=== PATIENT | male | born 1950 | race Caucasian/White ===

== ENCOUNTER 2016-04-29 13:11 | Inpatient (IN) | payer BC ==
[~2016-04-29] VITALS: Ht 182.9 cm; Wt 82.5 kg
[2016-04-29 14:10] VITALS: BP 115/72; PULSE 96; TEMP 97.5
[2016-04-29] MEDS ORDERED: AMOXICILLIN 8751 TAB PO (14:14)
[2016-04-29] MEDS ORDERED: ATIVAN 1MG T1 MG/TAB PO (14:15)
[2016-04-29] MEDS ORDERED: RT SPIRIVA18 MCG IH (14:15)
[2016-04-29] MEDS ORDERED: RT ALBUTER2.5 MG/0.5 IH (14:15)
[2016-04-29 15:01] VITALS: BP 109/69; PULSE 94; PULSE 98; TEMP 97.8
[2016-04-29 15:24] VITALS: BP 109/69; PULSE 98
[2016-04-29 17:42] LABS: BASO # 0.1 (0.0-0.2); BASO % 0.6 % (0.0-2.0); EOS # 0.4 (0.0-0.7); EOS % 4.3 % (0-4.0); GRAN # 5.9 (1.4-6.5); GRAN % 70.3 % (42.2-75.2); HEMATOCRIT 49.4 % (42.0-52.0); HEMOGLOBIN 17.1 g/dl (13.5-18.0); LYMPH # 1.1 (1.2-3.4); LYMPH % 12.9 % (20.0-51.0); MEAN CELL VOLUME 89 fl (80.0-100.0); MEAN CORPUSCULAR HEMOGLOBIN 31 pg (27.0-31.0); MEAN CORPUSCULAR HGB CONC 35 g/dl (33.0-37.0); MEAN PLATELET VOLUME 9.4 fl (7.4-10.4); MONO % 11.4 % (1.7-9.3); PLATELET COUNT 178 K/mm3 (130-400); RED BLOOD COUNT 5.53 M/mm3 (4.20-5.60); REDCELL DISTRIBUTION WIDTH-CV 13.4 % (11.5-14.5); WHITE BLOOD COUNT 8.3 K/mm3 (4.8-10.8)
[2016-04-29 17:50] LABS: INR 1.1 (0.8-3.0); PROTHROMBIN TIME 12.4 SECONDS (9.7-12.8)
[2016-04-29 17:52] LABS: PARTIAL THROMBOPLASTIN TIME 26.9 SECONDS (26.0-37.0)
[2016-04-29 17:57] LABS: ADJUSTED CALCIUM 9.2 mg/dL (8.4-10.2); ALBUMIN 3.1 gm/dL (3.5-5.0); BILIRUBIN,TOTAL 1.1 mg/dL (0.0-1.0); CALCIUM 8.5 mg/dL (8.4-10.2); CREATININE, serum 0.79 mg/dL (0.66-1.25); POTASSIUM 4.5 mmol/L (3.4-5.0); TOTAL PROTEIN 6.5 gm/dL (6.4-8.2)
[2016-04-29 18:10] LABS: TROPONIN-I 0.162 ng/mL (0.000-0.034)
[2016-04-29 18:54] LABS: INFLUENZA B NEGATIVE
[2016-04-29 19:10] VITALS: BP 147/94; PULSE 115; TEMP 98.2
[2016-04-29 22:06] LABS: PH 6 (5-8); SQUAMOUS EPITHELIAL 0-2 /hpf; URINE APPEARANCE Clear; URINE BACTERIA None Seen /hpf; URINE BILIRUBIN Negative (NEGATIVE); URINE BLOOD 2+ (NEGATIVE); URINE COLOR Yellow; URINE GLUCOSE Negative (NEGATIVE); URINE KETONE Trace (NEGATIVE); URINE RBC 20-50 /hpf; URINE UROBILINOGEN Negative (NEGATIVE)
[2016-04-30] VITALS (13 sets, daily range): BP systolic 92–119; BP diastolic 58–77; PULSE 97–110; TEMP 97.4–98.7
[2016-04-30 22:34] LABS: HOMOCYSTEINE 4.7 umol/L (5.5-16.2)
[2016-05-01 04:11] VITALS: BP 104/63; PULSE 97; TEMP 97.6
[2016-05-01 08:33] VITALS: BP 90/52; PULSE 104; TEMP 97.3
[2016-05-01 09:13] LABS: FACTOR V LEIDEN MUTATION B Negative (Negative); PT G20210A MUTATION B Negative (Negative)
[2016-05-01 10:15] LABS: CREATININE, serum 0.96 mg/dL (0.66-1.25)
[2016-05-01 11:02] LABS: BASO % 0.6 % (0.0-2.0); EOS # 0.2 (0.0-0.7); EOS % 3.1 % (0-4.0); GRAN # 4.8 (1.4-6.5); GRAN % 67.7 % (42.2-75.2); HEMATOCRIT 40.5 % (42.0-52.0); LYMPH # 1.1 (1.2-3.4); LYMPH % 15.8 % (20.0-51.0); MEAN CELL VOLUME 93 fl (80.0-100.0); MEAN CORPUSCULAR HEMOGLOBIN 32 pg (27.0-31.0); MEAN CORPUSCULAR HGB CONC 35 g/dl (33.0-37.0); MONO # 0.9 (0.1-0.6); MONO % 12.2 % (1.7-9.3); PLATELET COUNT 193 K/mm3 (130-400); RED BLOOD COUNT 4.38 M/mm3 (4.20-5.60); REDCELL DISTRIBUTION WIDTH-CV 13.8 % (11.5-14.5)
[2016-05-01 11:03] LABS: HEMOGLOBIN 14.1 g/dl (13.5-18.0)
[2016-05-01 11:19] VITALS: BP 100/60; PULSE 101; TEMP 97.9
[2016-05-01 15:36] VITALS: BP 101/57; PULSE 79; TEMP 98.1
[2016-05-01 19:10] VITALS: BP 110/65; PULSE 92; TEMP 97
[2016-05-01 23:24] VITALS: BP 103/60; PULSE 90; TEMP 98.2
[2016-05-02 04:38] VITALS: BP 114/67; PULSE 102; TEMP 97.8
[2016-05-02 08:02] LABS: BASO % 0.5 % (0.0-2.0); EOS # 0.3 (0.0-0.7); EOS % 3.8 % (0-4.0); GRAN # 4.3 (1.4-6.5); GRAN % 64.6 % (42.2-75.2); HEMATOCRIT 39.7 % (42.0-52.0); HEMOGLOBIN 13.3 g/dl (13.5-18.0); LYMPH # 1.2 (1.2-3.4); MEAN CELL VOLUME 93 fl (80.0-100.0); MEAN CORPUSCULAR HEMOGLOBIN 31 pg (27.0-31.0); MEAN CORPUSCULAR HGB CONC 34 g/dl (33.0-37.0); MEAN PLATELET VOLUME 9.1 fl (7.4-10.4); MONO # 0.8 (0.1-0.6); MONO % 12.6 % (1.7-9.3); PLATELET COUNT 219 K/mm3 (130-400); RED BLOOD COUNT 4.27 M/mm3 (4.20-5.60); REDCELL DISTRIBUTION WIDTH-CV 13.9 % (11.5-14.5); WHITE BLOOD COUNT 6.6 K/mm3 (4.8-10.8)
[2016-05-02 08:20] LABS: CALCIUM 8.1 mg/dL (8.4-10.2); CREATININE, serum 1.16 mg/dL (0.66-1.25); POTASSIUM 3.6 mmol/L (3.4-5.0)
[2016-05-02 08:30] LABS: PROTEIN C ACTIVITY 75 % (70-150); PROTEIN S ACTIVITY 121 % (65-160)
[2016-05-02 08:44] VITALS: BP 109/66; PULSE 75; TEMP 97.8
[2016-05-02] MEDS ORDERED: XARELTO STARTER20 MG PO (12:37)
[2016-05-02] MEDS ORDERED: DOXYCYCLINE 10100 MG PO (12:38)
[2016-05-02 12:52] VITALS: BP 111/69; PULSE 80; TEMP 98.1
[2016-05-02 14:49] LABS: LUPUS ANTICOAGULANT PTT 31 sec (26 - 36)
[2016-05-02 14:56] LABS: LUPUS ANTICOAGULANT INR 1.3 (()); LUPUS ANTICOAGULANT PT 14.6 sec (())
[2016-05-02 20:55] VITALS: BP 126/78; PULSE 93; TEMP 97.4
[2016-05-02 22:55] VITALS: BP 128/77; PULSE 86; TEMP 97.5
[2016-05-03 04:36] VITALS: BP 124/73; PULSE 87; TEMP 97.8
[2016-05-03 07:48] VITALS: BP 105/62; PULSE 94; TEMP 97.1
[2016-05-03 20:57] LABS: HIV 1/2 Antibodies Non-Reactive; HIV-1p24 Antigen Non-Reactive
[2016-05-06 09:26] LABS: LUPUS ANTICOAGULANT DRVVT 0.9 ratio (())
[2016-06-20] MEDS ORDERED: ELIQUIS 5MG PO (08:08)
== END 2016-05-03 13:30 | disposition home or self-care (01) | DRG 163 ==
LOC: MEDICAL 13:11
PROVIDERS: Internal Medicine; Internal Medicine Pulmonary Disease; Physician Assistant
PROC: 0B968ZZ Drainage of Right Lower Lobe Bronchus, Via Natural or Artificial Opening Endoscopic (ICD-10-PCS; 2016-04-30)
PROC: 0B9B8ZZ Drainage of Left Lower Lobe Bronchus, Via Natural or Artificial Opening Endoscopic (ICD-10-PCS; 2016-04-30)
PROC: 0B998ZZ Drainage of Lingula Bronchus, Via Natural or Artificial Opening Endoscopic (ICD-10-PCS; 2016-04-30)
PROC: 06H03DZ Insertion of Intraluminal Device into Inferior Vena Cava, Percutaneous Approach (ICD-10-PCS; 2016-04-30)
PROC: 0B958ZZ Drainage of Right Middle Lobe Bronchus, Via Natural or Artificial Opening Endoscopic (ICD-10-PCS; principal; 2016-04-30 12:30)
DX: I26.99 Other pulmonary embolism without acute cor pulmonale (principal); J18.9 Pneumonia, unspecified organism; E87.1 Hypo-osmolality and hyponatremia; I82.4Z3 Acute embolism and thrombosis of unspecified deep veins of distal lower extremity, bilateral; J44.9 Chronic obstructive pulmonary disease, unspecified; F41.9 Anxiety disorder, unspecified; R91.8 Other nonspecific abnormal finding of lung field; Z87.891 Personal history of nicotine dependence
CPT/HCPCS: 99222-AI; 99232-AI; 99233-AI; 99239; C1769; C1880; C1894; J1650; J1956; J2543; J2704; J3010; J3370; J7050; Q9967

== ENCOUNTER 2016-06-23 11:46 | Outpatient (CLI) | payer BC ==
[2016-06-23] VITALS (16 sets, daily range): BP systolic 107–131; BP diastolic 63–84; PULSE 70–87
[~2016-06-23] VITALS: Ht 182.9 cm; Wt 87.3 kg
[~2016-06-23 11:46] MED LIST: AMOXICILLIN 8751 TAB PO; ATIVAN 1MG T1 MG/TAB PO; DOXYCYCLINE 10100 MG PO; ELIQUIS 5MG PO; RT ALBUTER2.5 MG/0.5 IH; RT SPIRIVA18 MCG IH; XARELTO STARTER20 MG PO
== END 2016-06-23 17:19 | disposition home or self-care (01) ==
LOC: COL.RAD 11:46
DX: D38.1 Neoplasm of uncertain behavior of trachea, bronchus and lung (principal); I26.99 Other pulmonary embolism without acute cor pulmonale
CPT/HCPCS: J2250; J3010

== ENCOUNTER 2016-07-02 06:42 | Outpatient (CLI) | payer BC ==
[~2016-07-02] VITALS: Ht 182.9 cm; Wt 88.3 kg
[2016-07-02] VITALS (18 sets, daily range): BP systolic 115–131; BP diastolic 71–85; PULSE 68–87
== END 2016-07-02 12:49 | disposition home or self-care (01) ==
LOC: COL.RAD 06:42
DX: D14.31 Benign neoplasm of right bronchus and lung (principal)
CPT/HCPCS: J3010

== ENCOUNTER 2016-07-23 08:38 | Day surgery (SDC) | payer BC ==
[~2016-07-23] VITALS: Ht 182.9 cm; Wt 90.9 kg
[2016-07-23 09:42] VITALS: BP 134/68; PULSE 80; TEMP 97.5
[2016-07-23 10:40] VITALS: BP 106/66; PULSE 86; TEMP 97.5
[2016-07-23 10:55] VITALS: BP 121/67; PULSE 86
[2016-07-23 11:10] VITALS: BP 133/64; PULSE 86
[2016-07-23 11:25] VITALS: BP 122/55; PULSE 87
== END 2016-07-23 12:15 | disposition home or self-care (01) ==
LOC: SDCO 08:38
DX: R91.8 Other nonspecific abnormal finding of lung field (principal); E87.6 Hypokalemia; R19.7 Diarrhea, unspecified; I10 Essential (primary) hypertension; R07.9 Chest pain, unspecified; Z80.3 Family history of malignant neoplasm of breast; Z87.891 Personal history of nicotine dependence; K21.9 Gastro-esophageal reflux disease without esophagitis; G62.9 Polyneuropathy, unspecified
CPT/HCPCS: J0456; J2704; J2920; J7050; J7120

== ENCOUNTER 2016-11-06 10:49 | Outpatient (CLI) | payer MEDICARE, OTHER | END 2016-11-06 12:46 | LOC: COL.CAR 10:49 | DX: I74.9 Embolism and thrombosis of unspecified artery (principal); Z79.01 Long term (current) use of anticoagulants; Z53.8 Procedure and treatment not carried out for other reasons ==

== ENCOUNTER 2016-11-12 07:09 | Outpatient (CLI) | payer MEDICARE, OTHER ==
[2016-11-12] VITALS (9 sets, daily range): BP systolic 131–157; BP diastolic 74–87; PULSE 59–72; TEMP 97.4
[~2016-11-12] VITALS: Ht 183 cm; Wt 90.0 kg
[2016-11-12] MEDS ORDERED: ELIQUIS 5MG PO (07:31)
[2016-11-12] MEDS ORDERED: ETHAMBUTOL HYD400 MG PO (07:32)
[2016-11-12] MEDS ORDERED: BIAXIN 500MG T500 MG PO (07:32)
[2016-11-12] MEDS ORDERED: BROVANA15 MCG/2 M IH (07:33)
[2016-11-12] MEDS ORDERED: PULMICORT0.5 MG/2 M IH (07:33)
[2016-11-12 08:47] LABS: HEMATOCRIT 40.2 % (42.0-52.0); HEMOGLOBIN 14.5 g/dl (13.5-18.0); MEAN CELL VOLUME 91 fl (80.0-100.0); MEAN CORPUSCULAR HEMOGLOBIN 33 pg (27.0-31.0); MEAN CORPUSCULAR HGB CONC 36 g/dl (33.0-37.0); MEAN PLATELET VOLUME 8.8 fl (7.4-10.4); PLATELET COUNT 156 K/mm3 (130-400); REDCELL DISTRIBUTION WIDTH-CV 14.6 % (11.5-14.5); WHITE BLOOD COUNT 4.3 K/mm3 (4.8-10.8)
[2016-11-12 08:52] LABS: PROTHROMBIN TIME 10.6 SECONDS (9.7-12.8)
[2016-11-12 08:56] LABS: CREATININE, serum 0.95 mg/dL (0.66-1.25)
== END 2016-11-12 13:57 | disposition home or self-care (01) ==
LOC: COL.CAR 07:09
PROVIDERS: Radiology Diagnostic Radiology
DX: Z45.2 Encounter for adjustment and management of vascular access device (principal); I26.99 Other pulmonary embolism without acute cor pulmonale; I82.411 Acute embolism and thrombosis of right femoral vein; I82.431 Acute embolism and thrombosis of right popliteal vein; J44.9 Chronic obstructive pulmonary disease, unspecified; Z79.01 Long term (current) use of anticoagulants
CPT/HCPCS: C1769; J2250; J3010; J7120; Q9967

== ENCOUNTER → 2017-02-02 | Outpatient (CLI) | payer MEDICARE, OTHER ==
[~2017-02-02] MED LIST changes: +BIAXIN 500MG T500 MG PO; +BROVANA15 MCG/2 M IH; +ETHAMBUTOL HYD400 MG PO; +PULMICORT0.5 MG/2 M IH
== END ==
LOC: COL.RAD 08:40
DX: R91.8 Other nonspecific abnormal finding of lung field (principal); K76.89 Other specified diseases of liver; R59.0 Localized enlarged lymph nodes
CPT/HCPCS: Q9967